=== PATIENT | male | born 1950 | race Caucasian/White ===

== ENCOUNTER → 2017-08-14 | Outpatient (CLI) | payer MEDICARE, BC ==
[~2017-08-14] MED LIST: ATENOLOL25 MG; MULTIVITAMIN1 EAC1; VITAMIN C1000 MG; Z.0.ACTIGALL300 MG; Z.0.AVODART0.5 MG; Z.0.CRESTOR10 MG; Z.0.DIOVAN HCT 3201; Z.0.ECOTRIN325 MG; Z.0.FLOMAX0.4 MG; Z.0.NORVASC5 MG; Z.0.PLAVIX75 MG; Z.0.VITAMIN C1000 MG
--- NOTE | 2017-08-14 10:45 | Diagnostic Imaging Report ---
EXAMINATION: CT scan of the chest without contrast. TECHNIQUE: Spiral CT images of the chest were performed from the lung apices to the level of the adrenal glands without IV contrast. Coronal and sagittal reformatted images were obtained. COMPARISON: 01/14/2017 CLINICAL HISTORY: Follow-up of the left groundglass opacity DISCUSSION: LINES/TUBES: Sternotomy sutures and postsurgical changes associated with coronary artery bypass again are noted. LUNGS AND AIRWAYS: Stable groundglass opacity that abuts the pleura involving the left upper lobe best visualized on series 3, image # [id number]. This does not appear to have significantly changed in its nature or size. No masses or consolidation. The airways are normal, without endobronchial lesions. PLEURA: No pneumothorax or pleural effusions. HEART AND MEDIASTINUM: The thyroid gland is normal. Stable right paratracheal lymph node has a short axis dimension of 8.5 mm. The heart and pericardium are within normal limits. Atherosclerotic calcification within the aorta. LYMPH NODES: There is no mediastinal, hilar or axillary lymphadenopathy. ABDOMEN: Limited contrast-enhanced views of the upper abdomen show no abnormality within the visualized liver, spleen, pancreas or kidneys. The adrenal glands are normal. BONES: No acute bony abnormalities. Degenerative changes of the lower cervical spine and thoracic spine. SOFT TISSUES: On the right side of the upper neck there is a masslike density seen just posterior to the mandible. This is asymmetric compared to the left side. This most likely represents a portion of the normal submandibular gland that is prominent due to tilting and angulation within the gantry. However clinical correlation involving the right neck and submandibular gland is recommended. IMPRESSION: 1. Stable appearance of a left upper lobe peripherally located groundglass opacity. 2. Asymmetric density in the right side of the upper neck likely is related to the submandibular gland. Clinical correlation with the neck exam is suggested. 3. According to Fleischner criteria yearly surveillance of the groundglass nodule is recommended. Signed by: Dr. Kirby Taylor DO on 08/14/2017 10:42 AM
== END ==
LOC: CT 09:26
PROVIDERS: ATTEND Internal Medicine
DX: R93.8 Abnormal findings on diagnostic imaging of other specified body structures (principal)
CPT/HCPCS: 71250

== ENCOUNTER → 2019-01-27 | Outpatient (CLI) | payer MEDICARE, BC ==
--- NOTE | 2019-01-27 17:00 | Diagnostic Imaging Report ---
EXAM: CT Chest WITHOUT contrast 01/27/2019 1:40 PM INDICATION: Lung nodule follow-up COMPARISON: Multiple prior chest CTs, most recently of 08/14/2017 TECHNIQUE: Chest was scanned utilizing a multidetector helical scanner from the lung apex through the level of the adrenal glands without administration of IV contrast. Coronal and sagittal reformations were obtained. Routine protocol was performed. IV CONTRAST: None RADIATION DOSE: Total DLP: 266.5 mGy*cm. Dose modulation, iterative reconstruction, and/or weight based adjustment of the mA/kV was utilized to reduce the radiation dose to as low as reasonably achievable. COMPLICATIONS: None FINDINGS: LINES/ TUBES: Pacer wires in unchanged position. LUNGS AND AIRWAYS: The central airways are patent. Compared to the most recent prior CT of 08/14/2017, there has been interval increase in size of the previously described left upper lobe lesion, which now measures 2.2 x 1.6 cm on series 3 image 55 and has a spiculated appearance. No new suspicious nodules are identified. No focal consolidation or pulmonary edema. PLEURA: The pleural spaces are clear. HEART AND MEDIASTINUM: The thyroid gland is normal. No mediastinal, hilar or axillary lymphadenopathy. The heart is normal in size.. There is no pericardial effusion. Diffuse atherosclerotic coronary artery calcifications. Atherosclerotic calcific lesions also involve the thoracic and upper abdominal aorta and major branches. UPPER ABDOMEN: Limited non-contrast views of the upper abdomen show no abnormality within the visualized liver, spleen, pancreas, or kidneys. The adrenal glands are normal. BONES: Stable degenerative changes of the visualized spine. SOFT TISSUES: Unremarkable. IMPRESSION: Interval increase in size of left upper lobe nodule, now measuring 2.2 x 1.6 cm with a spiculated appearance. This is concerning for malignancy and diagnostic sampling is recommended. RECOMMENDATIONS: Diagnostic sampling of growing left upper lobe lung nodule. Signed by: Marylin Russell MD on 01/27/2019 4:57 PM
== END ==
LOC: CT 13:25
PROVIDERS: ATTEND Internal Medicine
DX: R91.1 Solitary pulmonary nodule (principal)
CPT/HCPCS: 71250